=== PATIENT | female | born 2000 | race Caucasian/White ===

== ENCOUNTER → 2022-09-25 | Outpatient (CLI) | payer SELFPAY, OTHER ==
--- NOTE | 2022-09-25 11:19 | CT_ITS ---
STUDY: CT FACIAL BONES WITHOUT CONTRAST REASON FOR EXAM: Female, 22 years old. FACIAL FX RADIATION DOSAGE (If Supplied By Facility): CTDIvol = ( 29.38 ) mGy, DLP = ( 496.03 ) mGycm TECHNIQUE: The patient was scanned in a multi detector CT scanner. Sagittal and coronal images were reconstructed. Individualized dose optimization techniques were used for this CT. COMPARISON: None. FINDINGS: Normal soft tissue structures. Degenerative and minimally displaced fracture of the right orbital floor. Normal nasal bones and anterior nasal spine. Normal facial bones. Small air-fluid level in the right maxillary sinus with a nodular mucosal thickening. CT/Sinus/Facial Bone IMPRESSION: Minimally depressed fracture of the floor of the right orbit with soft tissue changes within the right maxillary sinus. Electronically Signed: Ron Patel MD at 12:07 EDT ,
== END | disposition home or self-care (01) ==
PROVIDERS: PCP Family Medicine; Referring Provider Otolaryngology; Visit Provider Otolaryngology
DX: S02.2XXA Fracture of nasal bones, initial encounter for closed fracture (principal)
CPT/HCPCS: 70486